=== PATIENT | male | born 1940 | race Caucasian/White ===

== ENCOUNTER 2018-06-19 15:13 | Emergency (ER) | payer OTHER ==
[2018-06-19] MEDS: KETOROLAC 30 MG INJ IM (16:46)
== END 2018-06-19 18:46 | disposition home or self-care (01) ==
LOC: FTE 15:13
DX: M25.562 Pain in left knee (principal); I10 Essential (primary) hypertension
CPT/HCPCS: 73562; 96372; 99284-25